=== PATIENT | male | born 1950 | race Caucasian/White ===

== ENCOUNTER 2018-09-29 23:28 | Emergency (ER) | payer OTHER, BC ==
--- NOTE | 2018-09-29 23:31 | PDOC ---
History of Present Illness - History of Present Illness Initial Comments: 09/29/18 23:47 Patient is a 68 year old male with no significant past medical history who presents to the ED with complaints of left shoulder pain that began earlier today. Patient reports undergoing left shoulder arthroscopic surgery and was prescribed oxycodone x2 doses every 6 hours with no relief. He reports taking his last dose at 9pm, with no relief, prompting him to come into the ED for further evaluation after the pain became unbearable. As per patient's , he has been applying ice to his shoulder for pain with minimal relief. Patient reports last time he took strong pain medication was years ago after a knee replacement, when he was given morphine in the hospital for the pain. Denies chest pain,Sob. Denies nausea, vomiting. Denies trauma to affected area. Denies contact with sick individuals, out of state travelling. Denies any other symptoms. Allergies: Silodosin Social history: Lives with . No smoking. No alcohol. No illicit drugs. Surgical history: Left shoulder surgery. Knee replacement. PMD: None Surgeon: Dr. Jose SARGENT General: No fevers or chills, no weakness, no weight loss HEENT: No change in vision. No sore throat, No ear pain Cardiovascular: No chest pain or shortness of breath Respiratory:No cough, or wheezing. Gastrointestinal: No nausea, vomiting, diarrhea or constipation, No rectal bleeding Genitourinary: No dysuria, hematuria, or frequency Musculoskeletal: +Left shoulder pain. No joint pain or swelling Neurologic: No headache, vertigo, dizziness or loss of consciousness Psychiatric: No depression Skin: No rashes or easy bruising Endocrine: No increased thirst or abnormal weight change Allergic: No skin or latex allergy All other systems reviewed and normal Basic PE GENERAL: The patient is awake, alert, and fully oriented, in no acute distress. HEAD: Normal with no signs of trauma. EYES: Pupils equal, round and reactive to light, extraocular movements intact, sclera anicteric, conjunctiva clear. EXTREMITIES: +Dressing in place. +Distal pulses normal. +Distal forearm well perfused. +ROM not tested secondary to surgery. +Patient in sling. +Sling removed for exam. no edema. NEUROLOGICAL: Normal speech, normal gait. PSYCH: Normal mood, normal affect. SKIN: Warm, Dry, normal turgor, no rashes or lesions noted. <Elia,Christopher - Last Filed: 09/29/18 23:47> - General History Source: Patient Exam Limitations: No Limitations - History of Present Illness Initial Comments: 09/29/18 23:44 A portion of this note was documented by scribe services under my direction. I have reviewed the details of the note, within reason, and agree with the documentation. The case summary and management plan written by me. Assessment and plan: This is 68-year-old male status post arthroscopic surgery of his shoulder for arthritis. Patient comes in complaining of not being able to control his pain with Percocets. Patient has been taking 2 Percocets every 4 hours without relief. 09/30/18 00:11 Reevaluation patient's pain is now well controlled. Patient is comfortable. Vitals are stable. Patient discharged home with his told that he can continue to take his Percocets if he needs to he can take take 2 every 4 hours but if he still in pain after 2 hours of taking the first 2 he can take another to midway between <Luis Ventura I - Last Filed: 09/30/18 00:13> - General Chief Complaint: Pain Stated Complaint: POST-SURGICAL PAIN Time Seen by Provider: 09/29/18 23:31 Past History <Christopher Rodrigez - Last Filed: 09/29/18 23:47> - Past Medical History Anemia: No Asthma: No Cancer: No Cardiac Disorders: No CVA: No COPD: No CHF: No Dementia: No Diabetes: No GI Disorders: Yes (GERD) Disorders: No (BPH) HTN: No Hypercholesterolemia: No Liver Disease: No Seizures: No Thyroid Disease: No - Surgical History Abdominal Surgery: Yes (HERNIA) Appendectomy: No Cardiac Surgery: No Cholecystectomy: No Lung Surgery: No Neurologic Surgery: No Orthopedic Surgery: Yes (LEFT TKR 2010) - Immunization History Td Vaccination: No - Suicide/Smoking/Psychosocial Hx Smoking Status: No Smoking History: Never smoked Number of Cigarettes Smoked Daily: 0 Hx Alcohol Use: Yes (OCCASIONALLY) Substance Use Type: None <Luis Ventura I - Last Filed: 09/30/18 00:13> - Past Medical History Allergies/Adverse Reactions: Allergies Allergy/AdvReac Type Severity Reaction Status Date / Time silodosin [From Rapaflo] Allergy Unverified 03/16/13 09:29 Home Medications: Ambulatory Orders Aspirin [Aspirin EC] 81 mg PO DAILY 03/15/12 Cholecalciferol (Vitamin D3) [Vitamin D3 -] 2,000 iu PO DAILY 03/15/12 Famotidine [Pepcid -] 40 mg PO DAILY PRN 02/27/14 Oxycodone HCl/Acetaminophen [Oxycodone-Acetaminophen 5-325] 1 each PO PRN *Physical Exam - Vital Signs Last Vital Signs Temp Pulse Resp BP Pulse Ox 97.9 F 82 16 158/89 100 09/29/18 23:31 09/29/18 23:31 09/29/18 23:31 09/29/18 23:31 09/29/18 23:31 <Christopher Rodrigez - Last Filed: 09/29/18 23:47> *DC/Admit/Observation/Transfer - Attestations Scribe Attestion: 09/29/18 23:48 Documentation prepared by Christopher Rodrigez, acting as product manager medical device for Luis Ventura MD. <Christopher Rodrigez - Last Filed: 09/29/18 23:47> <Luis Ventura I - Last Filed: 09/30/18 00:13> Diagnosis at time of Disposition: Post-op pain - Discharge Dispostion Disposition: HOME Condition at time of disposition: Stable - Patient Instructions Additional Instructions: If you feel any pain starting to come back in 2 hours you can go ahead and take 1 or 2 Percocets and repeat every 2 hours with 1 or 2 Percocets as needed to control the pain. Keep her appointment with your orthopedist in the morning. Return to the emergency department immediately with ANY new, persistent or worsening symptoms. Continue any medications as previously prescribed by your physician. You should follow up with your primary doctor as soon as possible regarding today's emergency department visit. . Please make sure your doctor reviews the results of your emergency evaluation. Thank you for coming to the Emergency Department today for your care. It was a pleasure to see you today. Please note that your evaluation is INCOMPLETE until you follow-up with your doctor.
[2018-09-29 23:35] VITALS: TEMP 97.9; BMI 32.1
[2018-09-29] MEDS ORDERED: HYDROmorphone HCL CARPU-JECT 1 MG/1 ML DISP.SYRIN IM ONE (23:40)
[2018-09-29] MEDS ORDERED: HYDROmorphone HCL CARPU-JECT 1 MG/1 ML DISP.SYRIN ONE (23:45)
[2018-09-30 00:14] VITALS: BP 137/67; PULSE 72
== END 2018-09-30 00:19 | disposition home or self-care (01) ==
LOC: FER 23:28
PROC: 3E023NZ Introduction of Analgesics, Hypnotics, Sedatives into Muscle, Percutaneous Approach (ICD-10-PCS; principal; 2018-09-29)
DX: G89.18 Other acute postprocedural pain (principal)
CPT/HCPCS: 99282-25

== ENCOUNTER 2018-11-01 16:21 | Emergency (ER) | payer OTHER, BC ==
[2018-11-01 16:32] VITALS: BP 102/71; PULSE 73; TEMP 97.4; BMI 25.0
[2018-11-01 17:10] LABS: BASO % 0.6 % (0-2.0); EOS % 2.3 % (0-4.5); HEMATOCRIT 40.9 % (35.4-49); HEMOGLOBIN 13.7 GM/dl (11.7-16.9); LYMPH % 20.7 % (8-40); MCH 30.9 pg (25.7-33.7); MCHC 33.5 g/dl (32.0-35.9); MEAN CELL VOLUME 92.2 fl (80-96); MEAN PLT VOLUME 8.3 fl (7.5-11.1); NEUT % 64.4 % (42.8-82.8); PLATELET COUNT 195 K/MM3 (134-434); RBC 4.43 M/mm3 (4.00-5.60); RDW 12.7 % (11.9-15.9); WHITE BLOOD COUNT 5.1 K/mm3 (4.0-10.8)
--- NOTE | 2018-11-01 17:13 | PDOC ---
Attending Attestation - Resident Resident Name: Mariella Brennan - HPI HPI: 11/01/18 17:05 Pt presents to the ED complaining of generalized abdominal pain for the last two days. States that he had sharp pain on , Thursday and Thursday, but now that has resolved and he just complains of vague abdominal discomfort. Denies nausea, vomiting or fever. Denies change in his bowel habits. He is tolerating PO. Has history of Afib, recently diagnosed and started on metoprolol and eliquis. - Physicial Exam PE: 11/01/18 17:13 Agree with resident exam. Patient is alert and awake and in no acute distress. Abdomen is soft and non distended, with mild diffuse tenderness and mild guarding. No rebound. - Medical Decision Making 11/01/18 17:14 PT presents to the ED complaining of abdominal discomfort. Differential includes gastritis, diverticulitis, less likely mesenteric ischemia. Will check labs including lactate and CT abdomen pelvis.
[2018-11-01 17:17] LABS: ALBUMIN 3.4 g/dl (3.5-5.0); ALK PHOS 47 U/L (32-92); ANION GAP 4 MMOL/L (8-16); BILIRUBIN,TOTAL 0.9 mg/dl (0.2-1.0); BLOOD UREA NITROGEN 27 mg/dl (7-18); CALCIUM 8.2 mg/dl (8.4-10.2); CHLORIDE 108 mmol/L (98-107); CO2 22 mmol/L (22-28); CREATININE 1.3 mg/dl (0.6-1.3); GLUCOSE,RANDOM 99 mg/dl (74-106); POTASSIUM 3.7 mmol/L (3.5-5.1); SGOT/AST 17 U/L (10-42); SGPT/ALT 22 U/L (10-40); SODIUM 134 mmol/L (136-145)
--- NOTE | 2018-11-01 17:37 | PDOC ---
History of Present Illness - General Chief Complaint: Pain Stated Complaint: stomach pain,sent by PMD for eval Time Seen by Provider: 11/01/18 16:23 Past History - Past Medical History Allergies/Adverse Reactions: Allergies Allergy/AdvReac Type Severity Reaction Status Date / Time silodosin [From Rapaflo] Allergy Verified 11/01/18 16:22 Home Medications: Ambulatory Orders Apixaban [Eliquis] 5 mg PO BID 11/01/18 Metoprolol Succinate [Toprol Xl] 25 mg PO BID 11/01/18 Simvastatin 20 mg PO HS 11/01/18 Anemia: No Asthma: No Cancer: No Cardiac Disorders: No CVA: No COPD: No CHF: No Dementia: No Diabetes: No GI Disorders: Yes (GERD) Disorders: No (BPH) HTN: No Hypercholesterolemia: No Liver Disease: No Seizures: No Thyroid Disease: No - Surgical History Abdominal Surgery: Yes (HERNIA) Appendectomy: No Cardiac Surgery: No Cholecystectomy: No Lung Surgery: No Neurologic Surgery: No Orthopedic Surgery: Yes (LEFT TKR 2010) - Immunization History Td Vaccination: No - Suicide/Smoking/Psychosocial Hx Smoking Status: No Smoking History: Never smoked Number of Cigarettes Smoked Daily: 0 Hx Alcohol Use: Yes (occasional) Drug/Substance Use Hx: No Substance Use Type: None *Physical Exam - Vital Signs Last Vital Signs Temp Pulse Resp BP Pulse Ox 97.4 F L 73 18 102/71 100 11/01/18 16:22 11/01/18 16:22 11/01/18 16:22 11/01/18 16:22 11/01/18 16:22 Moderate Sedation - Procedure Monitoring Vital Signs: Procedure Monitoring Vital Signs Temperature 97.4 F L 11/01/18 16:22 Pulse Rate 73 11/01/18 16:22 Respiratory Rate 18 11/01/18 16:22 Blood Pressure 102/71 11/01/18 16:22 O2 Sat by Pulse Oximetry (%) 100 11/01/18 16:22 ED Treatment Course - LABORATORY CBC & Chemistry Diagram: 11/01/18 16:52 11/01/18 16:52 - ADDITIONAL ORDERS Additional order review: Laboratory Results 11/01/18 11/01/18 16:52 16:52 Sodium 134 L Potassium 3.7 Chloride 108 H Carbon Dioxide 22 Anion Gap 4 L BUN 27 H Creatinine 1.3 Creat Clearance w eGFR 54.57 Random Glucose 99 Calcium 8.2 L Total Bilirubin 0.9 AST 17 D ALT 22 D Alkaline Phosphatase 47 Total Protein 6.0 L Albumin 3.4 L Stool Occult Blood Negative 11/01/18 16:52 RBC 4.43 MCV 92.2 MCHC 33.5 RDW 12.7 MPV 8.3 Neutrophils % 64.4 Lymphocytes % 20.7 D Monocytes % 12.0 H Eosinophils % 2.3 Basophils % 0.6 *DC/Admit/Observation/Transfer Diagnosis at time of Disposition: Abdominal pain Qualifiers: Abdominal location: generalized Qualified Code(s): R10.84 - Generalized abdominal pain - Discharge Dispostion Disposition: HOME Condition at time of disposition: Improved Decision to Admit order: No - Referrals Referrals: Samra De Souza MD [Primary Care Provider] - - Patient Instructions Printed Discharge Instructions: DI for Abdominal Pain-Adult Additional Instructions: Please try to eat a non-irritating diet for the next few days and stay well hydrated. Your abdominal CT did not show any infection but may have picked up on a small generalized illness, or the start of one. Please return to the ED if you have worsening pain, fever, chills, nausea, vomiting, or diarrhea. - Post Discharge Activity
[2018-11-01 18:33] LABS: LIPASE 428 U/L (73-393)
== END 2018-11-01 19:24 | disposition home or self-care (01) ==
LOC: EDBD 16:21 → SUPCPDRO 16:21 → FER 16:21
DX: R10.84 Generalized abdominal pain (principal); N40.0 Benign prostatic hyperplasia without lower urinary tract symptoms; K21.9 Gastro-esophageal reflux disease without esophagitis
CPT/HCPCS: 36415; 74177-TC; 80053; 82272; 83605; 83690; 85025; 99283-25

== ENCOUNTER 2019-01-21 07:49 | Emergency (ER) | payer OTHER, BC ==
--- NOTE | 2019-01-21 07:55 | PDOC ---
History of Present Illness - General Chief Complaint: Injury Stated Complaint: HEAD INJURY S/P UNWITNESSED FALL Time Seen by Provider: 01/21/19 07:55 - History of Present Illness Initial Comments: 01/21/19 09:56 69 years old past medical history significant for A. davide on [place], hyperlipidemia presents to the emergency department after an apparent head injury with retrograde amnesia Patient states he woke up this morning at 5:30 was planning on going skiing when outside to take the dog out and get the paper when he return back to the house his found him confused with a large hematoma to the back of his head. There was a significant amount of black ice this morning patient states he has a vague recollection of slipping on black ice Also complaining of some upper back pain. Initially when Y first found patient he was very confused not remember the events since arriving at the emergency department his sensorium is clearing and he is now a no 3 but still with some difficulty with memories prior to the fall Symptoms are moderate in severity improving with time no exacerbating factors. Past History - Past Medical History Allergies/Adverse Reactions: Allergies Allergy/AdvReac Type Severity Reaction Status Date / Time silodosin [From Rapaflo] Allergy Verified 01/21/19 07:51 Home Medications: Ambulatory Orders Apixaban [Eliquis] 5 mg PO BID 11/01/18 Metoprolol Succinate [Toprol Xl] 25 mg PO BID 11/01/18 Simvastatin 20 mg PO HS 11/01/18 Anemia: No Asthma: No Cancer: No Cardiac Disorders: Yes CVA: No COPD: No CHF: No Dementia: No Diabetes: No GI Disorders: Yes (GERD) Disorders: No (BPH) HTN: Yes Hypercholesterolemia: Yes Liver Disease: No Seizures: No Thyroid Disease: No - Surgical History Abdominal Surgery: Yes (HERNIA) Appendectomy: No Cardiac Surgery: No Cholecystectomy: No Lung Surgery: No Neurologic Surgery: No Orthopedic Surgery: Yes (LEFT TKR 2010) - Immunization History Td Vaccination: No - Suicide/Smoking/Psychosocial Hx Smoking Status: No Smoking History: Never smoked Number of Cigarettes Smoked Daily: 0 Hx Alcohol Use: Yes (occasional) Drug/Substance Use Hx: No Substance Use Type: None Review of Systems - Review of Systems Able to Perform ROS?: Yes Comments:: 01/21/19 09:57 ROS: A complete review of 10 out of 10 review of systems is taken and is negative apart from what is previously mentioned below and in the HPI. *Physical Exam - Physical Exam Comments: 01/21/19 09:57 Medical Decision Making - Medical Decision Making 01/21/19 10:31 History examination consistent with concussion with small episode of retrograde amnesia Currently patient now back to baseline mental status head CT negative for any acute pathology x-rays demonstrate no acute fracture dislocations Given the patient is on [place]. We discussed observation however patient lives with his she feels comfortable closely observing him for the next 24 hours or return to the emergency department for any severe worsening headache change in behavior persistent vomiting or lethargy Patient observed in the ED for 3 hours, continues to improve, now back to baseline They will follow up with his primary care provider on Thursday to obtain clearance prior to returning to sports and activities Findings, the need for follow-up and strict return instructions discussed with patient. 01/21/19 16:44 *DC/Admit/Observation/Transfer Diagnosis at time of Disposition: Concussion Qualifiers: Encounter type: initial encounter Loss of consciousness presence/duration: with LOC of unspecified duration Qualified Code(s): S06.0X9A - Concussion with loss of consciousness of unspecified duration, initial encounter - Discharge Dispostion Disposition: HOME Condition at time of disposition: Fair Decision to Admit order: No - Referrals Referrals: Daniel Carpenter MD [Staff Physician] - - Patient Instructions Printed Discharge Instructions: DI for Concussion Additional Instructions: Drink plenty of fluids. Take [id number] Tylenol as needed for pain. Ice back of head and back 20 minutes on 20 minutes off. For the next 24 hours have your check on you every 3-4 hours to make sure that your arousable. Return to ED immediately for any severe headache persistent vomiting if you're unable to be woken up any weakness numbness or for any concerns. For any concussion symptoms that last longer than 7 days follow-up with Dr. Carpenter neurology. - Post Discharge Activity
[2019-01-21 08:03] VITALS: TEMP 97.6; BMI 25.0
[2019-01-21 10:55] VITALS: BP 142/80; PULSE 59
== END 2019-01-21 10:46 | disposition home or self-care (01) ==
LOC: FER 07:49
DX: S06.0X9A Concussion with loss of consciousness of unspecified duration, initial encounter (principal); W00.0XXA Fall on same level due to ice and snow, initial encounter; Y93.01 Activity, walking, marching and hiking; Y92.89 Other specified places as the place of occurrence of the external cause; I10 Essential (primary) hypertension; I48.91 Unspecified atrial fibrillation; E78.5 Hyperlipidemia, unspecified; K21.9 Gastro-esophageal reflux disease without esophagitis; Z79.01 Long term (current) use of anticoagulants
CPT/HCPCS: 70450-TC; 72070-TC-FY; 99283-25

== ENCOUNTER 2020-08-07 06:30 | Inpatient (IN) | payer OTHER, BC ==
[2020-07-30 11:45] VITALS: BMI 25.8
[2020-08-07] MEDS ORDERED: CEFAZOLIN 2 GM in DEXTROSE 5%-WATER - 50 ML IVPB ONE (07:22)
[2020-08-07] MEDS ORDERED: TRANEXAMIC ACID 1000 MG/10 ML VIAL IVPUSH ONE (07:22)
[2020-08-07] MEDS ORDERED: VANCOMYCIN 1,000 MG VIAL (RESTRICTED TO ID ONLY) ONE (07:29)
[2020-08-07] MEDS ORDERED: ceFAZolin SODIUM 1 GM VIAL ONE ×2 (07:29→10:25)
--- NOTE | 2020-08-07 07:56 | HP ---
Satellite [facility] - Chief Complaint Chief Complaint: right knee pain - Past Medical History Allergies/Adverse Reactions: Allergies Allergy/AdvReac Type Severity Reaction Status Date / Time silodosin [From Rapaflo] Allergy Verified 08/07/20 07:32 - Current Medications Current Medications: Home Medications Medication Instructions Recorded Apixaban [Eliquis] 5 mg PO BID 11/01/18 Metoprolol Succinate [Toprol Xl] 25 mg PO BID 11/01/18 Simvastatin 20 mg PO HS 11/01/18 Cholecalciferol (Vitamin D3) 1,000 unit PO DAILY 07/30/20 [Vitamin D3 -] Satellite Physical Exam - Physical Examination General Appearance: Well Nourished, Well Developed, Alert & Oriented x3 ENT: Clear Lung: Normal air movement Extremities: Other (right knee- + swelling, + ttp, decr rom, nvi, xrays show grade 4 tricompartmental djd) Neurological: Intact Satellite Impression/Plan - Impression/Plan Impression: right knee djd Operative Procedure: right jonatan tkr Date to be Performed: 08/07/20
[2020-08-07] MEDS: CELECOXIB 200 MG CAPSULE PO ONE ×2 (08:00→13:02)
[2020-08-07] MEDS ORDERED: MIDAZOLAM HCL 2 MG/2 ML SINGLE DOSE VIAL ONE ×2 (08:28→08:40)
[2020-08-07] MEDS ORDERED: SODIUM CHLORIDE 0.9% P/F 10 ML VIAL IJ ONE (08:28)
[2020-08-07] MEDS ORDERED: BUPIVACAINE LIPOSOME/PF (EXPAREL) 266 MG/20 ML VIAL ONE (08:28)
[2020-08-07] MEDS ORDERED: PROPOFOL 20 ML ONE ×3 (08:39)
[2020-08-07] MEDS ORDERED: ePHEDrine SULFATE 50 MG/1 ML AMPULE ONE (08:39)
[2020-08-07] MEDS ORDERED: SUCCINYLCHOLINE CHLORIDE 200 MG/10 ML SYRINGE ONE (08:40)
[2020-08-07] MEDS ORDERED: ONDANSETRON 4 MG/2 ML VIAL IVPUSH PRN ×2 (10:02→12:11)
[2020-08-07] MEDS ORDERED: MAG HYDROX/AL HYDROX/SIMETH 30 ML UNIT-DOSE CUP PO PRN (10:02)
[2020-08-07] MEDS ORDERED: MAGNESIUM HYDROX 2400MG/30ML ORAL SUSPENSION 30 ML CUP PO PRN (10:02)
[2020-08-07] MEDS ORDERED: LACTATED RINGERS SOLUTION 1,000 ML IV SCH (10:15)
[2020-08-07] MEDS ORDERED: DEXAMETHASONE SOD PHOSPHATE 4 MG/1 ML VIAL ONE (10:25)
[2020-08-07] MEDS ORDERED: TRANEXAMIC ACID 1000 MG/10 ML VIAL ONE (10:25)
[2020-08-07] MEDS ORDERED: ONDANSETRON 4 MG/2 ML VIAL ONE (10:25)
[2020-08-07] MEDS ORDERED: VANCOMYCIN 1,000 MG VIAL (RESTRICTED TO ID ONLY) IVPB ONE (11:11)
--- NOTE | 2020-08-07 11:49 | OP ---
Operative Note - Note: Operative Date: 08/07/20 (lake[place]) Pre-Operative Diagnosis: right knee djd Operation: right jonatan tkr Post-Operative Diagnosis: Same as Pre-op Surgeon: Gamaliel Garza Ship'S Pilot: Milan Alvarez Anesthesiologist/FINISH PRODUCTION MANAGER: Blas Cox Anesthesia: Spinal, Local Specimens Removed: bone fragments Estimated Blood Loss (mls): 100
[2020-08-07] MEDS ORDERED: PROMETHAZINE HCL 25 MG/1 ML VIAL IVPUSH PRN (12:11)
[2020-08-07] MEDS ORDERED: oxyCODONE HCL 5 MG TABLET PO PRN (12:11)
[2020-08-07] MEDS ORDERED: ACETAMINOPHEN 325 MG TABLET (FP) ONE (12:42)
[2020-08-07] MEDS: ACETAMINOPHEN 325 MG TABLET (FP) PO SCH ×2 (12:46→20:23)
--- NOTE | 2020-08-07 13:36 | SPEC ---
DATE OF OPERATION: 08/07/2020 PREOPERATIVE DIAGNOSIS: Degenerative joint disease right knee. POSTOPERATIVE DIAGNOSIS: Degenerative joint disk right knee. PROCEDURE: Right total knee replacement with robotic-assisted navigation (MAKOplasty). SURGEON: Gamaliel Garza MD PEACE OFFICER: DON Jo ANESTHESIA: Regional. FINAL CLOSURE: A total knee system with a cemented 5 femur, 5 tibia, 11 polyethylene, 32 patella, number 1 Vicryl fascia, 0 and 2-0 subcutaneous, 3-0 Monocryl subcuticular with skin glue for skin, 4-0 undyed Vicryl for pin sites. ESTIMATED BLOOD LOSS: Negligible. COMPLICATIONS: None. CONDITION: Stable condition. DESCRIPTION OF OPERATIVE PROCEDURE: Patient was taken to the operating room on August 07, 2020. Regional and general anesthesia was administered by the anesthesiologist. IV Kefzol and TXA were administered by the anesthesiologist. Well-padded pneumatic tourniquet was placed on the proximal thigh. The right lower extremity was prepped and draped in the usual sterile fashion. The leg was exsanguinated with an Esmarch bandage, and tourniquet was inflated to 275 mmHg. A 12 to 15-cm longitudinal midline incision was incised while centered over the patella. The dissection was carried down to the level of the extensor mechanism with sufficient flaps made to adequately perform the procedure. A medial parapatellar arthrotomy was then performed. We made a cuff of tissue on the patella for later closure. The patella was inverted, the knee was flexed up. The fat pad was excised. The subperiosteal dissection was on the anteromedial proximal tibia around towards the direction of the MCL. The ACL and the PCL were transected and dbrided. The meniscal remnants of the medial and lateral meniscus were dbrided and removed. This allowed the knee to be able to "be brought forward." The checkpoints were malleted into the tibia and into the femur. Two threaded pins were drilled anteroposteriorly proximal to the knee through the previous incision, through the anterior cortex, then just engaging the posterior cortex. To these pins was assembled the femoral navigation array. One handbreadth below the tibial tubercle, 2 stab incisions were used to drill 2 threaded pins in parallel fashion into the tibia, again through the anterior cortex and just engaging the posterior cortex. To these pins was fastened the tibial arrays. The knee was then registered with the navigation device with center of rotation of the hip, medial and lateral malleoli, both checkpoints, and multiple points on both the femur and the tibia to ensure excellent registration. The navigation device was directed off the "top of the bubbles" on both the femur and the tibia. The navigation passed within less than 0.5 mm to plan. The knee was then thoroughly inspected to remove all osteophytes both medially, laterally, and on the femur and the tibia, and whatever osteophytes were available for dissection. The knee was then taken to extension and to flexion, and stressed in both varus and valgus to assess flexion gaps. The virtual position of the components on the navigation device were then manipulated to optimize the position and to ensure equal gaps in both flexion and extension, and both medially and laterally. The robot was then brought into the field and was registered. The cuts were then made both on the femur and on the tibia as to plan. All osteophytes posteriorly were then removed as well. The gaps were then measured again in flexion and extension to be equal in both flexion and extension and medial and laterally. The femoral notch was then made, as we were doing a posterior stabilizing component, with the appropriate sized box. Trial reduction of the femur achieved excellent [id number] fit. A tibial baseplate of appropriate polyethylene thickness was "floated in the knee." It was ensured to be in the excellent position by navigation devices and was pinned in place. The knee was taken through a range of motion, and found to have excellent stability throughout flexion and extension. The patella was calibrated for thickness and osteotomized down to the appropriate level. The appropriate lollipop was used to drill the lug holes in the patella and the trial button was applied. The knee was taken through a range of motion and found to have excellent tracking of the patella, and patella from full extension to full flexion. Trial components were removed, the keel was punched and drilled, and a sclerotic bone on the tibia was drilled to help with cement interdigitation. The knee was thoroughly irrigated with the pulse antibiotic circuit clerk. The real components were then cemented in using monitored arrangement cement techniques with antibiotic cement, and pressurization and extension. After the cement was hardened, the knee was thoroughly inspected to remove any extra cement. The real polyethylene component was then clipped into place. Range of motion, stability, and tracking were as described earlier. The checkpoints and the pins were removed. The knee was thoroughly irrigated with antibiotic irrigation. Vancomycin powder was placed into the knee for antibiotic prophylaxis. The medial parapatellar arthrotomy was then closed using number 1 Vicryl interrupted suture. After closure of the deep layer, the knee was taken through a range of motion, and found to have excellent stability of the patella with no dislocation and no undue tension on the repair. The subcutaneous was pulse antibiotic irrigated, and was then closed with 2-0 Vicryl, 3-0 Monocryl subcuticular with the skin glue for the skin. The distal tibial pin site was irrigated thoroughly as well and then closed with 4-0 undyed Vicryl. A sterile Aquacel dressing was applied, followed by a Richardson dressing. Tourniquet was deflated. Total tourniquet time was approximately 75 minutes. No complications. Patient was awakened from anesthesia and transferred to recovery room in stable condition. Postoperative x-rays revealed excellent position of the components. Ekta [id number]
[2020-08-07] MEDS: oxyCODONE HCL 5 MG TABLET PO PRN ×2 (16:18→20:27)
[2020-08-07] MEDS: CEFAZOLIN 2 GM/D5W 2 GM/50 ML ML IVPB SCH (17:59)
[2020-08-07] MEDS: SENNOSIDES/DOCUSATE COMBO (SENNA PLUS) TABLET (UD) PO SCH (21:35)
[2020-08-07] MEDS: metoPROLOL SUCCINATE 25 MG TAB.SR.24H (FP) PO SCH ×2 (21:36)
[2020-08-07] MEDS ORDERED: PATIENT'S OWN MEDICATION (NON-FORMULARY) (Simvastatin [Simvastatin] 20 MG) PO SCH (22:00)
[2020-08-07] MEDS ORDERED: ATORVASTATIN CA 10 MG TABLET (FP) PO SCH (22:00)
[2020-08-08] MEDS: ACETAMINOPHEN 325 MG TABLET (FP) PO SCH ×3 (01:00→13:12)
[2020-08-08] MEDS: oxyCODONE HCL 5 MG TABLET PO PRN ×3 (01:00→13:11)
[2020-08-08] MEDS: CEFAZOLIN 2 GM/D5W 2 GM/50 ML ML IVPB SCH (01:01)
[2020-08-08] MEDS ORDERED: PANTOPRAZOLE 40 MG TABLET PO SCH (07:00)
[2020-08-08 08:32] LABS: HEMATOCRIT 34.5 % (35.4-49); HEMOGLOBIN 11.3 GM/dl (11.7-16.9); MCH 30.9 pg (25.7-33.7); MCHC 32.8 g/dl (32.0-35.9); MEAN CELL VOLUME 94.2 fl (80-96); MEAN PLT VOLUME 8.5 fl (7.5-11.1); PLATELET COUNT 183 K/MM3 (134-434); RBC 3.67 M/mm3 (4.00-5.60); RDW 12.7 % (11.9-15.9); WHITE BLOOD COUNT 11.1 K/mm3 (4.0-10.8)
--- NOTE | 2020-08-08 09:53 | PN ---
Progress Note (short form) - Note Progress Note: Ortho Pt seen and examined s/p right jonatan thr pod #1 Selected Entries 08/08/20 06:00 Temperature 98.4 F Pulse Rate 63 Respiratory 18 Rate Blood Pressure 114/60 Laboratory Tests 08/08/20 06:47 WBC 11.1 H Hgb 11.3 L Hct 34.5 L D Plt Count 183 dressing c/d/i, rom 0-40, calf soft, nt nvi a/p PT dvt ppx pain control d/c home today f/u in 1 week
[2020-08-08] MEDS: metoPROLOL SUCCINATE 25 MG TAB.SR.24H (FP) PO SCH (09:54)
[2020-08-08] MEDS: SENNOSIDES/DOCUSATE COMBO (SENNA PLUS) TABLET (UD) PO SCH (09:54)
--- NOTE | 2020-08-08 09:54 | DS ---
Physical Examination Vital Signs: Vital Signs Temperature 98.4 F 08/08/20 06:00 Pulse Rate 63 08/08/20 06:00 Respiratory Rate 18 08/08/20 06:00 Blood Pressure 114/60 08/08/20 06:00 O2 Sat by Pulse Oximetry (%) 96 08/08/20 08:31 Labs: CBC, BMP 08/08/20 06:47 Discharge Summary Problems reviewed: Yes Reason For Visit: OSTEOARTHRITIS Procedures: Principal: right tkr Hospital Course: admitted for elective right jonatan tkr, post-op per protocol, stable for d/c Condition: Good - Instructions Diet, Activity, Other Instructions: Post-op Instructions-Total Knee Replacement Call the office for a follow-up appointment in 1 week - [phone] Aspirin 325mg daily for 6 weeks. Pain medication was sent into your pharmacy. Apply Graduated Compression Stockings (TEDs) to both lower extremities- remove daily for hygiene ONLY Apply Sequential Compression Device (SCDs) to both Lower extremities remove for PT and hygiene ONLY Apply cold packs to affected area for 15 minutes every 2 hours. Physical Therapist will come to your home for the first 5 days. You will be set up with outpatient PT at your first post-operative visit. Patient may ambulate as tolerated-encourage self care (at least every 2-3 hours while awake) with walker or cane Maintain Aquacel (waterproof) dressing to operative wound (will be removed by surgeon at first office visit) Shower with Aquacel dressing in place-if Aquacel integrity compromised, remove and apply dry sterile dressing and notify Orthopedist. DO NOT SHOWER unless Orthopedists approves without Aquacel dressing CONTACT THE OFFICE FOR ANY CHANGE IN YOUR CONDITION (for example-fever greater than 102 degrees, excessive bleeding from operative site, purulent drainage, severe swelling or pain) GO TO THE EMERGENCY ROOM IF THERE IS A MEDICAL EMERGENCY Knee Precautions: * Keep a rolled towel under affected heel while in bed or chair (to keep knee in extension) * Keep affected leg elevated except during mealtimes * DO NOT PLACE PILLOW UNDER AFFECTED KNEE * If you have any questions, please do not hesitate to call the office - [phone]. Referrals: Gamaliel Garza MD [Staff Physician] - Disposition: VNS/HOME HEALTH CARE - Home Medications Comprehensive Discharge Medication List: Ambulatory Orders Apixaban [Eliquis] 5 mg PO BID 11/01/18 Metoprolol Succinate [Toprol Xl] 25 mg PO BID 11/01/18 Simvastatin 20 mg PO HS 11/01/18 Cholecalciferol (Vitamin D3) [Vitamin D3 -] 1,000 unit PO DAILY 07/30/20 Oxycodone HCl/Acetaminophen [Percocet 5-325 mg Tablet -] 1 - 2 tab PO Q6H #50 tab MDD 8 08/08/20
[2020-08-08] MEDS ORDERED: APIXABAN 5 MG TABLET PO SCH (10:00)
[2020-08-08] MEDS ORDERED: MULTIVITAMINS (DAILY MVI) TABLET (FP) PO SCH (10:00)
--- NOTE | 2020-08-08 10:12 | PN ---
Progress Note (short form) - Note Progress Note: Anesthesia postop note 70 y/o m s/p spinal anesthesia/nerve block for knee replacement and postop pain management POD#1, vss, aaox3, undergoing PT, pain well controlled No anesthesia complications.
[2020-08-08 14:06] VITALS: BP 120/54; PULSE 59; TEMP 98.8
--- NOTE | 2020-08-09 12:15 | PATH ---
Surgical Pathology Report Patient Name: EMORY ORDOÑEZ Med. Rec. #: [id number] /Age/Gender: 1950 (Age: 70) / M Account: [id number] Location: [facility] MED-SURG Taken: 08/07/2020 Received: 08/07/2020 Reported: 08/09/2020 Physicians: Gamaliel Garza M.D. Specimen(s) Received RIGHT KNEE BONES Clinical History Osteoarthritis right knee Final Diagnosis BONES, KNEE, RIGHT, TOTAL KNEE REPLACEMENT MAKOPLASTY: BONE WITH DEGENERATIVE JOINT DISEASE AND REACTIVE SYNOVIUM. Electronically Signed Samra Mckeon M.D. Gross Description Received in formalin labeled "right knee bone," is a 13.0 x 11.0 x 2.0 cm aggregate of multiple portions of bone and soft tissue. The tibial plateau measures 7.6 x 5.6 x 1.7 cm. There is a 2.1 cm in greatest dimension area of eburnation present. Remaining articular surfaces are zamora-brown and diffusely granular. The underlying trabecular bone is yellow and hard. Health Information Provider sections are submitted in one cassette, following decalcification. /08/08/2020 [facility]08/08/2020
== END 2020-08-08 16:35 | disposition home health service (06) | DRG 470 ==
LOC: FM/S 06:30
PROVIDERS: ADMIT Orthopaedic Surgery; ATTEND Orthopaedic Surgery
PROC: 8E0Y0CZ Robotic Assisted Procedure of Lower Extremity, Open Approach (ICD-10-PCS; 2020-08-07)
PROC: 0SRC0J9 Replacement of Right Knee Joint with Synthetic Substitute, Cemented, Open Approach (ICD-10-PCS; principal; 2020-08-07 10:09)
DX: M17.11 Unilateral primary osteoarthritis, right knee (principal)
CPT/HCPCS: 36415; 73560-TC-RT-FY; 85027; 88305-TC; 88311-TC; 94760; 97010-GP; 97116-GP; 97162-GP

== ENCOUNTER 2020-12-29 10:14 | Emergency (ER) | payer OTHER, BC ==
[2020-12-29] MEDS ORDERED: CASIRIVIMAB (REGN10933) 1,200 MG, IMDEVIMAB (REGN10987) 1,200 MG in SODIUM CHLORIDE 230 ML IVPB ONE (10:24)
[2020-12-29 10:49] VITALS: BMI 25.8
[2020-12-29 11:28] LABS: HEMATOCRIT 39.4 % (35.4-49); HEMOGLOBIN 13.4 GM/dL (11.7-16.9); MCH 31.5 pg (25.7-33.7); MCHC 34.1 g/dl (32.0-35.9); MEAN CELL VOLUME 92.4 fl (80-96); MEAN PLT VOLUME 8.1 fl (7.5-11.1); PLATELET COUNT 183 K/MM3 (134-434); RBC 4.26 M/mm3 (4.00-5.60); RDW 14.2 % (11.9-15.9); WHITE BLOOD COUNT 6.8 K/mm3 (4.0-10.0)
[2020-12-29 11:57] LABS: POTASSIUM 4.6 mmol/L (3.5-5.1)
[2020-12-29 11:58] LABS: CALCIUM 8.7 mg/dL (8.5-10.1)
[2020-12-29 11:59] LABS: BLOOD UREA NITROGEN 22.9 mg/dL (7-18)
[2020-12-29 12:02] LABS: CREATININE 1.6 mg/dL (0.55-1.3)
[2020-12-29] MEDS ORDERED: SODIUM CHLORIDE 0.9% 500 ML INFUS.BAG IV ONE (12:23)
[2020-12-29 14:55] VITALS: BP 122/68; PULSE 79; TEMP 98
== END 2020-12-29 14:54 | disposition home or self-care (01) ==
LOC: JCOVINFU 10:14 → JER 10:14 → JCOVINFU 14:54
DX: U07.1 COVID-19 (principal)
CPT/HCPCS: 36415; 80048; 85027; 99285-25; M0243; Q0243

== ENCOUNTER 2021-09-04 14:53 | Emergency (ER) | payer OTHER, BC ==
[2021-09-04 15:09] VITALS: BP 115/81; PULSE 87; TEMP 98.1; BMI 26.6
[2021-09-04] MEDS ORDERED: DIPHTH,PERTUSS(ACELL),TET 0.5 ML DISP.SYRIN IM ONE ×2 (15:18→15:37)
== END 2021-09-04 16:13 | disposition home or self-care (01) ==
LOC: FER 14:53
PROC: 3E0234Z Introduction of Serum, Toxoid and Vaccine into Muscle, Percutaneous Approach (ICD-10-PCS; principal; 2021-09-04)
DX: S90.221A Contusion of right lesser toe(s) with damage to nail, initial encounter (principal); W22.8XXA Striking against or struck by other objects, initial encounter; Y93.01 Activity, walking, marching and hiking
CPT/HCPCS: 73630-TC-RT-FY; 90471; 90715; 99284-25

== ENCOUNTER 2023-10-14 06:06 | Day surgery (SDC) | payer OTHER, BC ==
[2023-10-12 16:10] VITALS: BMI 26.6
[2023-10-14 06:47] VITALS: RESP 16
[2023-10-14] MEDS ORDERED: LIDOCAINE HCL 2% (20ML MULTI-DOSE VIAL) ONE (07:21)
[2023-10-14] MEDS ORDERED: MIDAZOLAM HCL 2 MG/2 ML SINGLE DOSE VIAL ONE (07:26)
[2023-10-14] MEDS ORDERED: PROPOFOL 20 ML ONE (07:26)
[2023-10-14] MEDS ORDERED: DEXAMETHASONE SOD PHOSPHATE 4 MG/1 ML VIAL ONE (08:11)
[2023-10-14] MEDS ORDERED: ceFAZolin SODIUM 1 GM VIAL ONE (08:11)
[2023-10-14] MEDS ORDERED: KETOROLAC TROMETHAMINE 30 MG/1 ML VIAL ONE (08:11)
[2023-10-14] MEDS ORDERED: ONDANSETRON 4 MG/2 ML VIAL ONE (08:11)
[2023-10-14 09:15] VITALS: PULSE 61; TEMP 97.8
[2023-10-14 09:25] VITALS: BP 136/79
== END 2023-10-14 09:15 | disposition home or self-care (01) ==
LOC: FASU 06:06
PROVIDERS: ATTEND Orthopaedic Surgery Hand Surgery
PROC: 01N50ZZ Release Median Nerve, Open Approach (ICD-10-PCS; principal; 2023-10-14 07:51)
DX: G56.01 Carpal tunnel syndrome, right upper limb (principal)

== ENCOUNTER 2024-05-09 07:28 | Day surgery (SDC) | payer OTHER, BC ==
[2024-05-02 16:16] VITALS: BMI 26.6
[2024-05-09] MEDS ORDERED: PROPOFOL 160 ML ONE (07:52)
[2024-05-09] MEDS ORDERED: LIDOCAINE HCL/PF 2% SDV 5ML VIAL ONE (07:52)
[2024-05-09] MEDS ORDERED: MIDAZOLAM HCL 2 MG/2 ML SINGLE DOSE VIAL ONE (08:15)
[2024-05-09 09:27] VITALS: TEMP 97.2
[2024-05-09 09:33] VITALS: BP 100/57; PULSE 63; RESP 20
== END 2024-05-09 09:35 | disposition home or self-care (01) ==
LOC: FASU-ENDO 07:28
PROVIDERS: ATTEND Internal Medicine Gastroenterology
PROC: 0DBL8ZX Excision of Transverse Colon, Via Natural or Artificial Opening Endoscopic, Diagnostic (ICD-10-PCS; 2024-05-09)
PROC: 0DB98ZX Excision of Duodenum, Via Natural or Artificial Opening Endoscopic, Diagnostic (ICD-10-PCS; 2024-05-09)
PROC: 0DB68ZX Excision of Stomach, Via Natural or Artificial Opening Endoscopic, Diagnostic (ICD-10-PCS; 2024-05-09)
PROC: 0D748DZ Dilation of Esophagogastric Junction with Intraluminal Device, Via Natural or Artificial Opening Endoscopic (ICD-10-PCS; 2024-05-09)
PROC: 0DBN8ZX Excision of Sigmoid Colon, Via Natural or Artificial Opening Endoscopic, Diagnostic (ICD-10-PCS; principal; 2024-05-09 08:23)
DX: Z12.11 Encounter for screening for malignant neoplasm of colon (principal); D12.2 Benign neoplasm of ascending colon; K63.5 Polyp of colon; K57.30 Diverticulosis of large intestine without perforation or abscess without bleeding; K22.2 Esophageal obstruction; K29.50 Unspecified chronic gastritis without bleeding; K44.9 Diaphragmatic hernia without obstruction or gangrene; K31.89 Other diseases of stomach and duodenum; R12 Heartburn
CPT/HCPCS: 88305-TC; 88342-TC